=== PATIENT | male | born 1960 ===

== ENCOUNTER 2019-03-18 17:11 | Emergency (ER) | payer MEDICAID ==
--- NOTE | 2019-03-18 17:49 | Event Note ---
ED Screening Note ED Screening Note: right sided chest pain that began yesterday at 2PM states it radiates to right shoulder and right arm no n/v/d no diaphoresis no SOB no leg swelling never had before no PMHx no allergies to meds no recent travel no recent surgery This initial assessment/diagnostic orders/clinical plan/treatment(s) is/are subject to change based on patients health status, clinical progression and re- assessment by fellow clinical providers in the ED. Further treatment and workup at subsequent clinical providers discretion. Patient/guardian urged not to elope from the ED as their condition may be serious if not clinically assessed and managed. Initial orders include: CP protocol
[2019-03-18 18:04] LABS: Basophils # (Auto) 0.1 K/mm3 (0.0-0.1); Basophils % (Auto) 0.8 % (0.0-1.8); Eosinophils # (Auto) 0.2 K/mm3 (0.0-0.4); Hematocrit 43.6 % (35.5-45.6); Hemoglobin 15.3 gm/dl (11.8-15.2); Lymphocytes # (Auto) 3.3 K/mm3 (1.2-5.4); Mean Corpuscular HGB Conc 35 % (32-34); Mean Corpuscular Volume 85 fl (84-94); Monocytes # (Auto) 0.8 K/mm3 (0.0-0.8); Monocytes % (Auto) 7.3 % (0.0-7.3); Platelet Count 311 K/mm3 (140-440); Red Blood Count 5.12 M/mm3 (3.65-5.03); Red Cell Distribution Width 13.5 % (13.2-15.2)
--- NOTE | 2019-03-18 18:23 | XRay Report ---
CHEST 2 VIEWS INDICATION / CLINICAL INFORMATION: MAIN: CHEST PAIN SINCE YESTERDAY EVENING. COMPARISON: Chest x-ray 02/26/2015 FINDINGS: SUPPORT DEVICES: None. HEART / MEDIASTINUM: No significant abnormality. LUNGS / PLEURA: No significant pulmonary or pleural abnormality. No pneumothorax. ADDITIONAL FINDINGS: No significant additional findings. IMPRESSION: 1. No acute findings. Signer Name: Carmine Naranjo MD Signed: 03/18/2019 6:19 PM Workstation Name: [id number]
[2019-03-18 18:29] LABS: Alanine Aminotransferase 35 units/L (7-56); Albumin 4.3 g/dL (3.9-5); BUN/Creatinine Ratio 15; Blood Urea Nitrogen 12 mg/dL (9-20); Calcium 9.6 mg/dL (8.4-10.2); Hemolysis Index 11
--- NOTE | 2019-03-18 21:25 | Emergency Department Report ---
HPI - General Chief Complaint: Chest Pain Time Seen by Provider: 03/18/19 17:48 - HPI HPI: Room 29 The patient is a 59-year-old male presenting with chief complaint of right-sided chest pain. Patient states his symptoms began yesterday approximately 14:00 while sitting at rest. Patient states his right-sided chest pain like pressure has been intermittent in nature. Patient states the pain radiates to the right axilla and around his right shoulder into the neck. Patient states certain movements bring on the pain. Patient denies shortness of breath, nausea/vomiting or diaphoresis. Patient admits to occasional pleurisy. Patient states she's never had a stress test or cardiac catheterization patient denies history of fever Location: [See above] Duration: [See above] Quality: [See above] Severity: [See above] Timing: [See above] Context: [See above] Modifying factors: [See above] Associated signs and symptoms: [see above] ED Past Medical Hx - Past Medical History Previous Medical History?: No - Surgical History Past Surgical History?: No - Family History Family history: no significant - Social History Smoking Status: Never Smoker Substance Use Type: None (denies illicit drug use) - Medications Home Medications: Home Medications Medication Instructions Recorded Confirmed Last Taken Type Cyclobenzaprine [Flexeril] 10 mg PO TID PRN #14 tablet 03/18/19 Unknown Rx HYDROcodone/APAP 5-325 [[place] 1 - 2 each PO Q6HR PRN #10 tablet 03/18/19 Unknown Rx 5/325] Ibuprofen [Motrin 800 MG tab] 800 mg PO Q8HR PRN #20 tablet 03/18/19 Unknown Rx ED Review of Systems ROS: Stated complaint: CHEST PAIN AND SHOULDER PAIN Other details as noted in HPI Constitutional: denies: diaphoresis Eyes: denies: eye pain ENT: denies: throat pain Respiratory: denies: shortness of breath Cardiovascular: chest pain Endocrine: no symptoms reported Gastrointestinal: denies: nausea, vomiting Genitourinary: denies: dysuria Musculoskeletal: myalgia Neurological: denies: headache Physical Exam - Physical Exam Vital Signs: Vital Signs 03/18/19 17:49 Temperature 97.9 F Pulse Rate 88 Respiratory 18 Rate Blood Pressure 133/82 O2 Sat by Pulse 98 Oximetry Physical Exam: GENERAL: The patient is well-developed well-nourished male sitting on stretcher not appearing to be in acute distress. [] HEENT: Normocephalic. Atraumatic. Extraocular motions are intact. Patient has moist mucous membranes. NECK: Supple. Trachea midline CHEST/LUNGS: Clear to auscultation. There is no respiratory distress noted. HEART/CARDIOVASCULAR: Regular. There is no tachycardia. There is no gallop rub or murmur. ABDOMEN: Abdomen is soft, nontender. Patient has normal bowel sounds. There is no abdominal distention. SKIN: There is no rash. There is no edema. There is no diaphoresis. NEURO: The patient is awake, alert, and oriented. The patient is cooperative. The patient has normal speech MUSCULOSKELETAL: There is decreased range of motion of the right shoulder. The patient's chest pain is reproducible with internal rotation and adduction of right shoulder ED Course Vital Signs 03/18/19 17:49 Temperature 97.9 F Pulse Rate 88 Respiratory 18 Rate Blood Pressure 133/82 O2 Sat by Pulse 98 Oximetry ED Medical Decision Making - Lab Data Result diagrams: 03/18/19 17:55 03/18/19 17:55 Laboratory Tests 03/18/19 03/18/19 03/18/19 17:55 17:55 20:58 WBC 11.6 H RBC 5.12 H Hgb 15.3 H Hct 43.6 MCV 85 MCH 30 MCHC 35 H RDW 13.5 Plt Count 311 Lymph % (Auto) 28.0 [place] % (Auto) 7.3 Eos % (Auto) 2.0 Baso % (Auto) 0.8 Lymph # 3.3 [place] # 0.8 Eos # 0.2 Baso # 0.1 Seg Neutrophils % 61.9 Seg Neutrophils # 7.2 D-Dimer Sodium 136 L Potassium 3.9 Chloride 98.2 Carbon Dioxide 22 Anion Gap 20 BUN 12 Creatinine 0.8 Estimated GFR > 60 BUN/Creatinine Ratio 15 Glucose 156 H Calcium 9.6 Total Bilirubin 0.60 AST 21 ALT 35 Alkaline Phosphatase 96 Troponin T < 0.010 < 0.010 Total Protein 8.1 Albumin 4.3 Albumin/Globulin Ratio 1.1 03/18/19 21:22 WBC RBC Hgb Hct MCV MCH MCHC RDW Plt Count Lymph % (Auto) [place] % (Auto) Eos % (Auto) Baso % (Auto) Lymph # [place] # Eos # Baso # Seg Neutrophils % Seg Neutrophils # D-Dimer 161.65 Sodium Potassium Chloride Carbon Dioxide Anion Gap BUN Creatinine Estimated GFR BUN/Creatinine Ratio Glucose Calcium Total Bilirubin AST ALT Alkaline Phosphatase Troponin T Total Protein Albumin Albumin/Globulin Ratio - EKG Data -: EKG Interpreted by Me EKG shows normal: sinus rhythm Rate: normal - EKG Data When compared to previous EKG there are: previous EKG unavailable Interpretation: other (no ischemic changes seen) - Radiology Data Radiology results: report reviewed (chest x-ray), image reviewed (chest x-ray) interpreted by me: Chest x-ray-no focal infiltrates, no pneumothorax [facility] [address] [place] [address] XRay Report Signed Patient: BETO WHITE MR#: [id number] 6 : 1960 Acct:[id number] Age/Sex: 59 / M ADM Date: 03/18/19 Loc: ED Attending Dr: Ordering Physician: FARZANA BLANCO Date of Service: 03/18/19 Procedure(s): XR chest routine 2V Accession Number(s): [id number] cc: FARZANA BLANCO Fluoro Time In Minutes: CHEST 2 VIEWS INDICATION / CLINICAL INFORMATION: MAIN: CHEST PAIN SINCE YESTERDAY EVENING. COMPARISON: Chest x-ray 02/26/2015 FINDINGS: SUPPORT DEVICES: None. HEART / MEDIASTINUM: No significant abnormality. LUNGS / PLEURA: No significant pulmonary or pleural abnormality. No pneumothorax. ADDITIONAL FINDINGS: No significant additional findings. IMPRESSION: 1. No acute findings. Signer Name: Carmine Naranjo MD Signed: 03/18/2019 6:19 PM Workstation Name: [id number] Transcribed By: TL Dictated By: Carmine Naranjo MD Electronically Authenticated By: Carmine Naranjo MD Signed Date/Time: 03/18/191818 DD/ 18 TD/TT: - Medical Decision Making The patient's chest pain is right-sided and the pain is reproduced with range of motion of the right shoulder. The patient has no associated symptoms, no ischemic changes seen on EKG and 2 sets of negative cardiac enzymes. This supports likely musculoskeletal skeletal cause of the patient's pain. The patient was given strong warnings to return should he develop worsening or other symptoms - Differential Diagnosis rotator cuff injury, ACS, PE, pericarditis Critical care attestation.: If time is entered above; I have spent that time in minutes in the direct care of this critically ill patient, excluding procedure time. ED Disposition Clinical Impression: Atypical chest pain, Right shoulder pain Disposition: TO HOME OR SELFCARE Is pt being admited?: No Does the pt Need Aspirin: No Condition: Stable Instructions: Chest Pain (ED), Rotator Cuff Injury (ED) Additional Instructions: Return to the emergency department should you develop worsening symptoms, inability to tolerate food or liquids, high fever or any other concerns Prescriptions: Cyclobenzaprine [Flexeril] 10 mg PO TID PRN #14 tablet PRN Reason: Muscle Spasm Ibuprofen [Motrin 800 MG tab] 800 mg PO Q8HR PRN #20 tablet PRN Reason: Pain, Moderate (4-6) HYDROcodone/APAP 5-325 [[place] 5/325] 1 - 2 each PO Q6HR PRN #10 tablet PRN Reason: Pain Referrals: ADRIANA BIANCHI MD [Staff Physician] - 3-5 Days (Dr. Bianchi is an orthopedist surgeon. Please follow-up with him for further evaluation) Time of Disposition: 23:01
[2019-03-18 23:19] VITALS: BP 129/72
== END 2019-03-18 23:19 | disposition home or self-care (01) ==
LOC: ED 17:11
DX: R07.89 Other chest pain (principal); M25.511 Pain in right shoulder; Z79.899 Other long term (current) drug therapy
CPT/HCPCS: 36415; 71046; 80053; 84484; 85025; 85379; 93005; 93010